=== PATIENT | female | born 1980 | race Asian ===

== ENCOUNTER 2021-06-22 22:35 | Inpatient (IN) | payer BC ==
[2021-06-23] MEDS ORDERED: DINOPROSTONE 10 MG VAGINAL SUPPOSITORY VG ONE (03:30)
[2021-06-23] MEDS: DEXTROSE 5%-LACTATED RINGERS 1,000 ML IV SCH (03:30)
[2021-06-23 03:42] VITALS: BMI 28.5
[2021-06-23 03:58] LABS: BASO % 0.2 % (0-2.0); EOS % 0.4 % (0-4.5); HEMATOCRIT 33.4 % (32.4-45.2); HEMOGLOBIN 11.8 GM/dL (10.7-15.3); LYMPH % 40.2 % (8-40); MCH 31.7 pg (25.7-33.7); MCHC 35.2 g/dl (32.0-36.0); MEAN CELL VOLUME 89.9 fl (80-96); MEAN PLT VOLUME 7.9 fl (7.5-11.1); MONO % 7.5 % (3.8-10.2); NEUT % 51.7 % (42.8-82.8); PLATELET COUNT 201 10^3/uL (134-434); RBC 3.71 M/mm3 (3.60-5.2); RDW 14.6 % (11.6-15.6); WHITE BLOOD COUNT 5.1 K/mm3 (4.0-10.0)
[2021-06-23 04:05] LABS: INR 0.97 (0.83-1.09)
[2021-06-23 04:08] LABS: ACTIVATED PTT 32.2 SECONDS (25.2-36.5)
[2021-06-23 04:13] LABS: CALCIUM 8.2 mg/dL (8.5-10.1)
[2021-06-23 04:14] LABS: BLOOD UREA NITROGEN 5.2 mg/dL (7-18)
[2021-06-23 04:17] LABS: CREATININE 0.5 mg/dL (0.55-1.3)
[2021-06-23 05:34] LABS: HIV INTERPRETATION NEGATIVE (NEGATIVE)
[2021-06-23] MEDS ORDERED: PROMETHAZINE HCL 25 MG/1 ML VIAL IVPUSH ONE (13:51)
[2021-06-23] MEDS ORDERED: BUTORPHANOL TARTRATE 1 MG/ML VIAL IVPB ONE (13:51)
[2021-06-23] MEDS ORDERED: AMPICILLIN - 2 GM in SODIUM CHLORIDE 100 ML IVPB ONE (13:53)
[2021-06-23] MEDS ORDERED: AMPICILLIN SODIUM 2 GM VIAL ONE (14:26)
[2021-06-23] MEDS ORDERED: BUTORPHANOL TARTRATE 2 MG/ML VIAL ONE (16:47)
[2021-06-23] MEDS ORDERED: PROMETHAZINE HCL 25 MG/1 ML VIAL ONE (16:47)
[2021-06-23] MEDS ORDERED: AMPICILLIN SODIUM 1 GM VIAL ONE ×2 (17:59→22:19)
[2021-06-23] MEDS: AMPICILLIN - 1 GM in SODIUM CHLORIDE 100 ML IVPB SCH ×2 (18:07→22:00)
[2021-06-23] MEDS ORDERED: OXYTOCIN 20 UNITS in 0.9% NS 20 UNIT/1,000 ML INFUS.BAG IV ONE (19:35)
[2021-06-23] MEDS: OXYTOCIN 30 UNITS in 0.9% NS 30 UNIT/500 ML INFUS.BAG IVPB SCH (20:20)
[2021-06-23] MEDS ORDERED: OXYTOCIN 30 UNITS in 0.9% NS 30 UNIT/500 ML INFUS.BAG IVPB ONE (20:38)
[2021-06-23] MEDS: ELECTROLYTE-148 SOLN 1,000 ML IV SCH (22:00)
[2021-06-24] MEDS ORDERED: CITRIC ACID/SODIUM CITRATE 30 ML UNIT-DOSE CUP PO ONE (00:03)
[2021-06-24] MEDS ORDERED: ONDANSETRON 4 MG/2 ML VIAL IVPUSH PRN (00:27)
[2021-06-24] MEDS ORDERED: morphine SULFATE/PF 0.5 MG/ML (2cc Syringe - QUVA) ONE (00:34)
[2021-06-24] MEDS ORDERED: ceFAZolin SODIUM 1 GM VIAL ONE (00:35)
[2021-06-24] MEDS ORDERED: OXYTOCIN 20 UNITS in 0.9% NS 20 UNIT/1,000 ML INFUS.BAG IV ONE (00:36)
[2021-06-24] MEDS ORDERED: PHENYLEPHRINE HCL 10 MG/1 ML SINGLE DOSE VIAL ONE (00:51)
[2021-06-24] MEDS ORDERED: OXYTOCIN 10 UNITS/ML VIAL ONE ×2 (01:01→01:26)
[2021-06-24] MEDS ORDERED: ONDANSETRON 4 MG/2 ML VIAL ONE (01:21)
[2021-06-24] MEDS ORDERED: KETOROLAC TROMETHAMINE 30 MG/1 ML VIAL ONE (01:23)
[2021-06-24] MEDS ORDERED: IBUPROFEN 800 MG/8 ML IJ IVPB PRN (01:50)
[2021-06-24] MEDS ORDERED: SENNOSIDES/DOCUSATE COMBO (SENNA PLUS) TABLET (UD) PO PRN (01:50)
[2021-06-24] MEDS ORDERED: oxyCODONE HCL 5 MG TABLET PO PRN ×2 (01:50)
[2021-06-24] MEDS ORDERED: METHYLERGONOVINE MALEATE 0.2 MG/1 ML AMP IM PRN (01:50)
[2021-06-24] MEDS: OXYTOCIN 20 UNITS in 0.9% NS 20 UNIT/1,000 ML INFUS.BAG IV SCH (02:00)
[2021-06-24] MEDS: PRENATAL VITAMINS W/ FOLIC ACID TABLET (FP) PO SCH (10:04)
[2021-06-24] MEDS: ACETAMINOPHEN 325 MG TABLET (FP) PO PRN (21:42)
[2021-06-25] MEDS ORDERED: BISACODYL 10 MG SUPP.RECT RC PRN (01:50)
[2021-06-25] MEDS: IBUPROFEN 600 MG TABLET (FP) PO PRN ×4 (05:25→21:41)
[2021-06-25] MEDS: ACETAMINOPHEN 325 MG TABLET (FP) PO PRN ×4 (05:25→21:40)
[2021-06-25] MEDS ORDERED: FAMOTIDINE 20 MG/50 ML IVPB 20 MG/50 ML MG IVPB ONE (08:00)
[2021-06-25 08:55] LABS: BASO % 0.2 % (0-2.0); EOS % 0.5 % (0-4.5); HEMATOCRIT 26.4 % (32.4-45.2); HEMOGLOBIN 9.5 GM/dL (10.7-15.3); LYMPH % 20.8 % (8-40); MCH 32.6 pg (25.7-33.7); MEAN CELL VOLUME 90.6 fl (80-96); MONO % 6.2 % (3.8-10.2); NEUT % 72.3 % (42.8-82.8); PLATELET COUNT 186 10^3/uL (134-434); RBC 2.91 M/mm3 (3.60-5.2); RDW 14.8 % (11.6-15.6)
[2021-06-25] MEDS ORDERED: DIPHTH,PERTUSS(ACELL),TET 0.5 ML DISP.SYRIN IM ONE (10:00)
[2021-06-25] MEDS: SIMETHICONE 80 MG TAB.CHEW (FP) PO PRN ×3 (10:47→21:41)
[2021-06-25] MEDS: PRENATAL VITAMINS W/ FOLIC ACID TABLET (FP) PO SCH (10:52)
[2021-06-25] MEDS: OXYTOCIN 30 UNITS in 0.9% NS 30 UNIT/500 ML INFUS.BAG IVPB SCH ×2 (19:56→19:59)
[2021-06-25] MEDS: DEXTROSE 5%-LACTATED RINGERS 1,000 ML IV SCH ×2 (19:56→19:57)
[2021-06-25] MEDS: ELECTROLYTE-148 SOLN 1,000 ML IV SCH (19:57)
[2021-06-25] MEDS: OXYTOCIN 20 UNITS in 0.9% NS 20 UNIT/1,000 ML INFUS.BAG IV SCH (19:57)
[2021-06-26] MEDS: IBUPROFEN 600 MG TABLET (FP) PO PRN ×5 (01:55→23:37)
[2021-06-26] MEDS: ACETAMINOPHEN 325 MG TABLET (FP) PO PRN ×5 (01:55→23:37)
[2021-06-26] MEDS: SIMETHICONE 80 MG TAB.CHEW (FP) PO PRN ×3 (01:56→23:37)
[2021-06-26] MEDS: PRENATAL VITAMINS W/ FOLIC ACID TABLET (FP) PO SCH (09:31)
[2021-06-27] MEDS: IBUPROFEN 600 MG TABLET (FP) PO PRN ×2 (03:44→09:26)
[2021-06-27] MEDS: ACETAMINOPHEN 325 MG TABLET (FP) PO PRN ×2 (03:44→09:26)
[2021-06-27] MEDS: SIMETHICONE 80 MG TAB.CHEW (FP) PO PRN ×2 (03:45→09:26)
[2021-06-27] MEDS: PRENATAL VITAMINS W/ FOLIC ACID TABLET (FP) PO SCH (09:26)
[2021-06-27 09:58] LABS: POC NITRAZINE NEG
[2021-06-27 11:00] VITALS: BP 133/94; PULSE 78; TEMP 98
== END 2021-06-27 12:00 | disposition home or self-care (01) | DRG 788 ==
LOC: JDEL 22:35 → JLDR 06-23 02:35 → J3W 06-24 03:59
PROVIDERS: ADMIT Obstetrics & Gynecology; ATTEND Obstetrics & Gynecology
PROC: 3E0P7VZ Introduction of Hormone into Female Reproductive, Via Natural or Artificial Opening (ICD-10-PCS; 2021-06-23)
PROC: 10D00Z1 Extraction of Products of Conception, Low, Open Approach (ICD-10-PCS; principal; 2021-06-24)
DX: O62.1 Secondary uterine inertia (principal); O24.420 Gestational diabetes mellitus in childbirth, diet controlled; Z3A.39 39 weeks gestation of pregnancy; O69.82X0 Labor and delivery complicated by other cord entanglement, without compression, not applicable or unspecified; Z37.0 Single live birth
CPT/HCPCS: 36415; 59025; 76819-TC; 80048; 82962; 83986-QW; 85025; 85610; 85730; 86780; 86850; 86900; 86901; 87389; 88307-TC; 90715; C9803; U0003; U0005